=== PATIENT | male | born 1980 | race American Indian/Alaskan Native ===

== ENCOUNTER 2017-05-12 10:52 | Emergency (ER) | payer SELFPAY ==
[2017-05-12 12:05] LABS: Basophils % (Auto) 0.4 % (0.0-1.8); Eosinophils % (Auto) 0.3 % (0.0-4.3); Hematocrit 49.5 % (35.5-45.6); Mean Corpuscular HGB Conc 32 % (32-34); Mean Corpuscular Hemoglobin 28 pg (28-32); Mean Corpuscular Volume 86 fl (84-94); Platelet Count 301 K/mm3 (140-440); Red Blood Count 5.78 M/mm3 (3.65-5.03); Red Cell Distribution Width 13.4 % (13.2-15.2); White Blood Count 9.6 K/mm3 (4.5-11.0)
[2017-05-12 12:22] LABS: Anion Gap 19 mmol/L; BUN/Creatinine Ratio 18.33; Blood Urea Nitrogen 22 mg/dL (9-20); Calcium 9.9 mg/dL (8.4-10.2); Carbon Dioxide 32 mmol/L (22-30); Chloride 86.3 mmol/L (98-107); Glucose 118 mg/dL (75-100); Potassium 3.6 mmol/L (3.6-5.0); Sodium 134 mmol/L (137-145)
[2017-05-12] MEDS ORDERED: ZOFRAN IV ONE (12:37)
[2017-05-12] MEDS ORDERED: SUBLIMAZE IV ONE (12:37)
[2017-05-12] MEDS ORDERED: NACL 0.9% 1000 ML 1,000 ML IV ONE (12:37)
--- NOTE | 2017-05-12 12:45 | Emergency Department Report ---
HPI - General Chief Complaint: Nausea/Vomiting/Diarrhea Time Seen by Provider: 05/12/17 12:31 - HPI HPI: Room 6 The patient is a 36-year-old male presenting with a chief complaint of abdominal pain. The patient states for the past 4 days he's had diffuse abdominal pain associated with nausea vomiting and diarrhea. There are no known sick contacts. No history of fever the patient has become diaphoretic at times. She states he has cramping pain which does not appear to be related to vomiting or diarrhea Location: Gastrointestinal system Duration: 4 days Quality: Cramping Severity: Moderate Modifying factors: [see above] Context: [see above] Mode of transportation: [not driving] ED Past Medical Hx - Past Medical History Previous Medical History?: No - Surgical History Additional Surgical History: cyst removed from in between lungs - Family History Family history: no significant - Social History Smoking Status: Current Every Day Smoker (1/2 pack per day) Substance Use Type: None (denies illicit drug use) - Medications Home Medications: Home Medications Medication Instructions Recorded Confirmed Last Taken Type Chlorhexidine Mouthwash [Peridex] 15 ml MM BID #1 bottle 02/01/14 Unknown Rx HYDROcodone/APAP 7.5-325 [[place] 1 each PO Q6HR PRN #14 tablet 02/01/14 Unknown Rx 7.5-325 mg TAB] Ibuprofen [Motrin] 800 mg PO Q8H PRN #20 tablet 02/01/14 Unknown Rx Penicillin Vk [Veetids TAB] 2 tab PO BID #40 tablet 02/01/14 Unknown Rx Diphenoxylate/Atropine [Lomotil] 2 tab PO QID PRN #20 tablet 05/12/17 Unknown Rx HYDROcodone/APAP 5-325 [[place] 1 - 2 each PO Q6HR PRN #12 tablet 05/12/17 Unknown Rx 5/325] Promethazine [Phenergan TAB] 25 mg PO Q6HR PRN #20 tab 05/12/17 Unknown Rx Promethazine [Phenergan] 25 mg PA Q6HR PRN #5 supp.rect 05/12/17 Unknown Rx ED Review of Systems ROS: Stated complaint: VOMIT/FEVER/NAUSEA/WEAKNESS Other details as noted in HPI Comment: All other systems reviewed and negative Constitutional: denies: chills, fever Eyes: denies: eye pain, eye discharge, vision change ENT: denies: ear pain, throat pain Respiratory: denies: cough, shortness of breath, wheezing Cardiovascular: denies: chest pain, palpitations Endocrine: no symptoms reported Gastrointestinal: abdominal pain, nausea, vomiting, diarrhea Genitourinary: denies: urgency, dysuria Musculoskeletal: denies: back pain, joint swelling, arthralgia Skin: denies: rash, lesions Neurological: denies: headache, weakness, paresthesias Psychiatric: denies: anxiety, depression Hematological/Lymphatic: denies: easy bleeding, easy bruising Physical Exam - Physical Exam Vital Signs: Vital Signs 05/12/17 11:11 Temperature 98.4 F Pulse Rate 120 H Respiratory 20 Rate Blood Pressure 134/95 O2 Sat by Pulse 99 Oximetry Physical Exam: GENERAL: The patient is well-developed well-nourished male lying on stretcher appearing to be in moderate discomfort. [] HEENT: Normocephalic. Atraumatic. Extraocular motions are intact. Patient has moist mucous membranes. NECK: Supple. Trachea midline CHEST/LUNGS: Clear to auscultation. There is no respiratory distress noted. HEART/CARDIOVASCULAR: Regular. There is no tachycardia. There is no gallop rub or murmur. ABDOMEN: Abdomen is soft, nontender. Patient has normal bowel sounds. There is no abdominal distention. SKIN: There is no rash. There is no edema. There is no diaphoresis. NEURO: The patient is awake, alert, and oriented. The patient is cooperative. The patient has normal speech MUSCULOSKELETAL: There is no evidence of acute injury. ED Course Vital Signs 05/12/17 11:11 Temperature 98.4 F Pulse Rate 120 H Respiratory 20 Rate Blood Pressure 134/95 O2 Sat by Pulse 99 Oximetry ED Medical Decision Making - Lab Data Result diagrams: 05/12/17 11:22 05/12/17 11:22 Laboratory Tests 05/12/17 05/12/17 05/12/17 11:22 11:22 11:22 WBC 9.6 RBC 5.78 H Hgb 16.0 H Hct 49.5 H MCV 86 MCH 28 MCHC 32 RDW 13.4 Plt Count 301 Lymph % (Auto) 27.3 [place] % (Auto) 14.1 H Eos % (Auto) 0.3 Baso % (Auto) 0.4 Lymph # 2.6 [place] # 1.4 H Eos # 0.0 Baso # 0.0 Seg Neutrophils % 57.9 Seg Neutrophils # 5.5 Sodium 134 L Potassium 3.6 Chloride 86.3 L Carbon Dioxide 32 H Anion Gap 19 BUN 22 H Creatinine 1.2 Estimated GFR > 60 BUN/Creatinine Ratio 18.33 Glucose 118 H Calcium 9.9 Total Bilirubin 1.40 H Direct Bilirubin 0.2 Indirect Bilirubin 1.2 AST 20 ALT 17 Alkaline Phosphatase 59 Total Protein 8.0 Albumin 4.9 Albumin/Globulin Ratio 1.6 Lipase 25 Urine Color Urine Turbidity Urine pH Ur Specific [place] Urine Protein Urine Glucose (UA) Urine Ketones Urine Blood Urine Nitrite Urine Bilirubin Urine Urobilinogen Ur Leukocyte Esterase Urine WBC (Auto) Urine RBC (Auto) U Epithel Cells (Auto) Urine Mucus 05/12/17 12:08 WBC RBC Hgb Hct MCV MCH MCHC RDW Plt Count Lymph % (Auto) [place] % (Auto) Eos % (Auto) Baso % (Auto) Lymph # [place] # Eos # Baso # Seg Neutrophils % Seg Neutrophils # Sodium Potassium Chloride Carbon Dioxide Anion Gap BUN Creatinine Estimated GFR BUN/Creatinine Ratio Glucose Calcium Total Bilirubin Direct Bilirubin Indirect Bilirubin AST ALT Alkaline Phosphatase Total Protein Albumin Albumin/Globulin Ratio Lipase Urine Color Yellow Urine Turbidity Clear Urine pH 5.0 Ur Specific [place] 1.029 Urine Protein 30 mg/dl Urine Glucose (UA) Neg Urine Ketones Neg Urine Blood Sm Urine Nitrite Neg Urine Bilirubin Neg Urine Urobilinogen < 2.0 Ur Leukocyte Esterase Neg Urine WBC (Auto) 2.0 Urine RBC (Auto) 2.0 U Epithel Cells (Auto) < 1.0 Urine Mucus 3+ - Radiology Data Radiology results: report reviewed (CT abdomen and pelvis), image reviewed (CT abdomen and pelvis) CT abdomen and pelvis (read by radiologist)-unremarkable CT scan of the abdomen and pelvis - Differential Diagnosis gastroenteritis, bowel perforation, colitis, ulcerative colitis Critical care attestation.: If time is entered above; I have spent that time in minutes in the direct care of this critically ill patient, excluding procedure time. ED Disposition Clinical Impression: Acute abdominal pain, Nausea vomiting and diarrhea Disposition: TO HOME OR SELFCARE Is pt being admited?: No Does the pt Need Aspirin: No Condition: Stable Instructions: Acute Nausea and Vomiting (ED), Abdominal Pain (ED) Additional Instructions: Return to the emergency department immediately should you develop worsening symptoms, fever, inability to tolerate food or liquid or any other concerns. Prescriptions: Diphenoxylate/Atropine [Lomotil] 2 tab PO QID PRN #20 tablet PRN Reason: Diarrhea HYDROcodone/APAP 5-325 [[place] 5/325] 1 - 2 each PO Q6HR PRN #12 tablet PRN Reason: Pain Promethazine [Phenergan TAB] 25 mg PO Q6HR PRN #20 tab PRN Reason: Nausea Promethazine [Phenergan] 25 mg PA Q6HR PRN #5 supp.rect PRN Reason: Vomiting Referrals: BERNY MCCRACKEN MD [Staff Physician] - 3-5 Days (Dr. Mccracken is a insole tack puller hand. Please follow up with him for further evaluation) JACK MORFIN MD [Staff Physician] - 3-5 Days (Dr. Morfin is a primary physician. Please follow up with him to be established as a patient) Time of Disposition: 14:34 (d/c p ivf)
[2017-05-12 12:52] LABS: Albumin 4.9 g/dL (3.9-5); Albumin/Globulin Ratio 1.6 %; Bilirubin,Direct 0.2 mg/dL (0-0.2); Bilirubin,Indirect 1.2 mg/dL; Bilirubin,Total 1.4 mg/dL (0.1-1.2)
[2017-05-12 12:55] LABS: Bilirubin,Urine NEG (Negative); Blood,Urine SM (Negative); Ketones,Urine NEG (Negative); Leukocyte Esterase,Urine NEG (Negative); Mucus,Urine 3+ /HPF; Nitrite,Urine NEG (Negative); Urobilinogen,Urine < 2.0 mg/dL (<2.0)
--- NOTE | 2017-05-12 14:01 | Cat Scan Report ---
CT SCAN OF THE ABDOMEN AND PELVIS WITH CONTRAST: HISTORY: Abdominal pain, nausea and vomiting. TECHNIQUE: Helical CT in 1.25mm intervals following IV contrast. Sagittal and coronal reconstructions. FINDINGS: The liver is normal in size and is without focal defect. No gallstones or biliary dilatation are noted. The spleen and pancreas demonstrate a normal size and attenuation with no evidence of abnormal mass. The kidneys are normal in size and position with no evidence of hydronephrosis or mass. The adrenal glands are normal. There is no intestinal obstruction or ascites. Normal appendix. The abdominal aorta is normal. No abnormalities are identified within the retroperitoneum or mesentery. There is no evidence of peritoneal air or fluid. There is no evidence of any abnormal masses or fluid collections within the pelvis. No adenopathy is identified. The bladder is normal. IMPRESSION: Unremarkable CT scan of the abdomen and pelvis with contrast.
[2017-05-12 15:00] VITALS: BP 122/87
== END 2017-05-12 15:50 | disposition home or self-care (01) ==
LOC: ED 10:52
DX: R10.9 Unspecified abdominal pain (principal); R11.2 Nausea with vomiting, unspecified; R19.7 Diarrhea, unspecified; F17.210 Nicotine dependence, cigarettes, uncomplicated
CPT/HCPCS: 36415; 74177; 80048; 80074; 81001; 83690; 85025; 96361; 96374; 96375; 99284; J2405; J3010; J7030; Q9967

== ENCOUNTER 2017-05-16 19:58 | Emergency (ER) | payer SELFPAY ==
[2017-05-16 20:09] VITALS: BP 123/87
== END 2017-05-16 22:55 | disposition left against medical advice (07) ==
LOC: ED 19:58
DX: H92.03 Otalgia, bilateral (principal); Z53.21 Procedure and treatment not carried out due to patient leaving prior to being seen by health care provider